=== PATIENT | male | born 1995 | race Hispanic/Latino ===

== ENCOUNTER 2018-08-27 19:54 | Emergency (ER) | payer BC ==
[2018-08-27 19:59] VITALS: BP 154/80; PULSE 84; RESP 18; TEMP 98.6; O2SAT 98
--- NOTE | 2018-08-27 20:18 | ED PDOC ---
Upper Extremity Pain/Injury Time Seen by Provider: 08/27/18 20:08 Chief Complaint (Nursing): Upper Extremity Problem/Injury Chief Complaint (Provider): Left 5th digit injury History Per: Patient History/Exam Limitations: no limitations Onset/Duration Of Symptoms: Mins Current Symptoms Are (Timing): Still Present Additional History Per: Patient Additional Complaint(s): Patient comes in for evaluation of left 5th digit pain and injury. Patient states he was playing basketball when he jammed his finger and now reports a deformity to the digit. No weakness, numbness, tingling, or other complaints. No medications taken prior to arrival. Past Medical History Reviewed: Historical Data, Nursing Documentation, Vital Signs Vital Signs: Last Vital Signs Temp 98.6 F 08/27/18 19:58 Pulse 84 08/27/18 19:58 Resp 18 08/27/18 19:58 BP 154/80 H 08/27/18 19:58 Pulse Ox 98 08/27/18 19:58 Primary Care Provider: FAMILY PROVIDER,NO - Medical History PMH: No Chronic Diseases - Surgical History Surgical History: No Surg Hx - Family History Family History: States: Unknown Family Hx - Home Medications Home Medications: Ambulatory Orders Medication Instructions Recorded No Known Home Med 12/05/15 - Allergies Allergies/Adverse Reactions: Allergies Allergy/AdvReac Type Severity Reaction Status Date / Time FISH Allergy URTICARIA Verified 08/27/18 19:59 Review of Systems Musculoskeletal: Positive for: Hand Pain (left 5th digit) Neurological: Negative for: Weakness, Numbness Physical Exam - Reviewed Nursing Documentation Reviewed: Yes Vital Signs Reviewed: Yes - Physical Exam Appears: Positive for: No Acute Distress Head Exam: Positive for: NORMAL INSPECTION Skin: Positive for: Normal Color Eye Exam: Positive for: Normal appearance Cardiovascular/Chest: Negative for: Tachycardia Respiratory: Negative for: Respiratory Distress Pulses-Radial (L): 2+ Pulses-Radial (R): 2+ Extremity: Positive for: Capillary Refill (< 2 seconds), Deformity (distal portion of left 5th digit is medially displaced at the PIP). Negative for: Tenderness Neurological/Psych: Positive for: Awake, Alert, Normal Tone. Negative for: Motor/Sensory Deficits - ECG O2 Sat by Pulse Oximetry: 98 (RA) Pulse Ox Interpretation: Normal Medical Decision Making Medical Decision Making: Impression: Dislocation of left 5th digit Plan: -- XR Left hand 2020 Joint reduced by PA without complication. Patient pending XR 2033 XR reviewed by ELVA shows good reduction, no fractures. Left 5th digit bravo taped to left 4th digit. Patient informed of findings and instructed to follow up with PMD in 2-3 days Scribe Attestation: Documented by Nanci Marroquin, acting as a scribe for ELVA Marina Provider Scribe Attestation: All medical record entries made by the Scribe were at my direction and personally dictated by me. I have reviewed the chart and agree that the record accurately reflects my personal performance of the history, physical exam, medical decision making, and the department course for this patient. I have also personally directed, reviewed, and agree with the discharge instructions and disposition. Procedures - Time-Out Type of Procedure: Joint reduction Site of Procedure: Left 5th digit Correct Patient: Yes Correct Procedure: Yes - Joint Reduction Conscious Sedation: No Reduction Attempts: 1 (distal left 5th digit at PIP) Pre-Procedure NV Exam: Yes Post Joint Reduction Film: joint reduced Progress: Patient tolerated procedure well Post reduction neurovascular exam is normal. Disposition - Clinical Impression Clinical Impression: Finger dislocation - Patient ED Disposition Is Patient to be Admitted: No - Disposition Referrals: Rachele Jay MD [Medical Doctor] - Disposition: Routine/Home Disposition Time: 20:35 Condition: GOOD Instructions: Finger Dislocation Forms: [employer] ([place])
--- NOTE | 2018-08-28 15:18 | RAD ---
Date of service: 08/27/2018 PROCEDURE: Left small finger radiographs. HISTORY: deformity, reduced COMPARISON: None. TECHNIQUE: AP radiograph of the left hand, as well as spot oblique and lateral images of left small finger were obtained. 4 views obtained. FINDINGS: LEFT SMALL FINGER: Left small finger normal, without fracture of focal lesion. Remainder of the left hand (as seen on the AP view) is grossly unremarkable. JOINTS: No subluxation or dislocation identified. Mild valgus deformity of the proximal interphalangeal joint left small digit in question. SOFT TISSUES: Normal. OTHER FINDINGS: None. IMPRESSION: No acute fracture or dislocation left small finger. Subtle valgus deformity of the proximal interphalangeal joint is not excluded. Clinically correlate further.
== END 2018-08-27 20:52 | disposition home or self-care (01) ==
LOC: H.ER 19:54
DX: S63.257A Unspecified dislocation of left little finger, initial encounter (principal); W23.0XXA Caught, crushed, jammed, or pinched between moving objects, initial encounter; Y93.67 Activity, basketball